=== PATIENT | male | born 1990 | race Caucasian/White ===

== ENCOUNTER 2018-09-26 16:22 | Emergency (ER) | payer OTHER ==
[2018-09-26] MEDS ORDERED: Amoxicillin/Clavulanate K 875-125 MG Tab PO STA (16:51)
[2018-09-26] MEDS ORDERED: Ibuprofen 600 MG Tab PO ONE (17:01)
--- NOTE | 2018-09-26 17:01 | EDM.PDOC ---
ED HPI GENERAL MEDICAL PROBLEM - General Chief Complaint: General Stated Complaint: NAIL IN HAND AND LEG Time Seen by Provider: 09/26/18 16:38 Source of Information: Reports: Patient, RN Notes Reviewed History Limitations: Reports: No Limitations - History of Present Illness INITIAL COMMENTS - FREE TEXT/NARRATIVE: The patient states that he is a [employer], working with a nail gun. He states that the nail gun accidentally discharged, putting a nail across the back of his left hand, entering the ulnar aspect of his third MCP joint, exiting the ulnar aspect of his third MCP. The nail went through and through his glove, therefore he remove the nail in order to get his glove off. About 15 minutes later, he reattached the air hose to the same nail gun, when it fired, without him pulling the trigger, putting a nail into his proximal medial right thigh. He also pulled that nail out. The patient reports minimal pain to either area. He denies tingling or numbness to his left third finger. The patient states that his last tetanus vaccination was in 2018. The patient does not have a PCP. Left Hand Pain Score (Numeric/FACES): 1 Right Upper Leg Pain Score (Numeric/FACES): 4 - Related Data Allergies Allergy/AdvReac Type Severity Reaction Status Date / Time No Known Allergies Allergy Verified 09/26/18 16:32 Home Meds: Home Meds Amoxicillin/Potassium Clav [Augmentin 875-125 Tablet] 1 tab PO Q12H #14 tablet 09/26/18 [Rx] Past Medical History - Past Health History Medical/Surgical History: Denies Medical/Surgical History Social & Family History - Tobacco Use Smoking Status *Q: Current Every Day Smoker Years of Tobacco use: 8 Packs/Tins Daily: 0.4 Month/Year Tobacco Last Used: Down from 1 ppd - Caffeine Use Caffeine Use: Reports: Coffee, Energy Drinks, Soda - Alcohol Use Alcohol Use History: Yes Alcohol Use Frequency: Socially - Recreational Drug Use Recreational Drug Use: No - Living Situation & Occupation Living situation: Reports: , with Family Occupation: Employed ([employer]) ED ROS GENERAL - Review of Systems Review Of Systems: ROS reveals no pertinent complaints other than HPI. ED EXAM, GENERAL - Physical Exam Exam: See Below Exam Limited By: No Limitations General Appearance: Alert, WD/WN, No Apparent Distress Extremities: Other (Puncture wounds noted to the radial and ulnar aspects of the third MCP joint. The extensor tendon is strong. The patient denies tingling or numbness to his left third finger. Vascular status of the left hand is intact. Single puncture wound noted to the proximal medial right thigh, with no associated hematoma or bleeding. No significant tenderness to this area. Neurovascular status of the right lower extremity is intact.) Course - Vital Signs Last Recorded V/S: Last Vital Signs Temp 36.8 C 09/26/18 16:34 Pulse 87 09/26/18 16:34 Resp 20 09/26/18 16:34 BP 133/59 L 09/26/18 16:34 Pulse Ox 96 09/26/18 16:34 - Orders/Labs/Meds Orders: Active Orders 24 hr Category Date Time Status Amoxicillin/Clavulanate K [Augmentin 875 MG/125 MG] Med 09/26/18 16:51 Stat 1 tab PO ONETIME STA - Re-Assessments/Exams Free Text/Narrative Re-Assessment/Exam: 09/26/18 16:53 The nail that went through the dorsal aspect of the patient's left hand appears to have avoided any significant injury to the extensor tendon of his left third finger. He has good extensor strength without pain, and no neurovascular injury. This wound, however, is at significantly increased risk for developing an infection, even with antibiotics. The puncture wound in the patient's medial proximal right thigh is far less concerning. The patient will be started on oral Augmentin here in the ED, and I will prescribe a seven-day course. I have asked the patient to follow-up with Dr. Moore if his left hand wound becomes any worse. Departure - Departure Time of Disposition: 16:55 Disposition: Home, Self-Care 01 Condition: Good Clinical Impression: Puncture wound of left hand with foreign body, Puncture wound of right thigh with foreign body - Discharge Information *PRESCRIPTION DRUG MONITORING PROGRAM REVIEWED*: Not Applicable *COPY OF PRESCRIPTION DRUG MONITORING REPORT IN PATIENT PIERRE: Not Applicable Referrals: Dante Moore MD [Physician] - Additional Instructions: You were seen in the emergency room after a nail again shot a nail across the back of her left hand, and into your right thigh. Infection, particularly of your left hand, is the biggest concern. Keep the wounds clean with ordinary soap and water. Apply a clean bandage over the wounds, daily, until there is significant healing. You have been started on the antibiotic Augmentin. A prescription for Augmentin has been sent to the [facility], [facility]. Take one tablet of Augmentin every 12 hours, starting tomorrow morning, Tuesday, , as prescribed. Finish the entire prescription unless told otherwise by a doctor. Take [id number] ibuprofen, 2-3 tablets (400-600 mg) every 8 hours, with food, as needed for discomfort If the pain or swelling of your left hand worsens, please follow-up with the Orthopedic Surgeon Dr. Dante Moore as soon as possible. If any other problems, please do not hesitate to return to the ER. - My Orders Last 24 Hours: My Active Orders 09/26/18 16:51 Amoxicillin/Clavulanate K [Augmentin 875 MG/125 MG] 1 tab PO ONETIME STA - Assessment/Plan Last 24 Hours: My Active Orders 09/26/18 16:51 Amoxicillin/Clavulanate K [Augmentin 875 MG/125 MG] 1 tab PO ONETIME STA
== END 2018-09-26 17:15 | disposition home or self-care (01) ==
LOC: JD.ED 16:22
DX: S61.442A Puncture wound with foreign body of left hand, initial encounter (principal); S71.141A Puncture wound with foreign body, right thigh, initial encounter; F17.210 Nicotine dependence, cigarettes, uncomplicated; W45.0XXA Nail entering through skin, initial encounter
CPT/HCPCS: 99283; A9270